=== PATIENT | male | born 1975 | race Caucasian/White ===

== ENCOUNTER 2016-07-17 19:49 | Emergency (ER) | END 2016-07-17 23:55 | disposition home or self-care (01) | CPT/HCPCS: 99283; 99284; A9270 ==

== ENCOUNTER 2020-10-29 12:41 | Emergency (ER) | payer OTHER ==
--- OUTSIDE RECORDS SUMMARY | 2020-10-29 13:28 | EXTERNAL MEDICAL SUMMARY RPT | Continuity of Care Document ---
:1975 Demographics Phone Unavailable Preferred Language Unknown Marital Status Unknown Anglican Affiliation Unknown Race Unknown Ethnic Group Unknown Author Organization [facility] Address [address] [phone] Phone Social History date description facility [phone]
[2020-10-29 13:40] LABS: BASOPHILS % (AUTO) 0.7 %; EOSINOPHILS # (AUTO) 0.1 10^3/uL (0.0-0.7); HCT - HEMATOCRIT 39.1 % (42.0-52.0); HGB - HEMOGLOBIN 14.5 g/dL (14.0-18.0); LYMPHOCYTES # (AUTO) 1.7 10^3/uL (1.5-3.5); LYMPHOCYTES % (AUTO) 28.1 %; MEAN CORPUSCULAR HEMOGLOBIN 32.7 pg (27.0-31.0); MEAN CORPUSCULAR HGB CONC 37.1 g/dL (32.0-36.0); MEAN CORPUSCULAR VOLUME 88.1 fL (80.0-94.0); MONOCYTES # (AUTO) 0.4 10^3/uL (0.0-1.0); MONOCYTES % (AUTO) 6.7 %; NEUTROPHILS # (AUTO) 3.8 10^3/uL (1.5-6.6); NEUTROPHILS % (AUTO) 63.2 %; PLT - PLATELET COUNT 168 10^3/uL (130-450); RED BLOOD COUNT 4.44 10^6/uL (4.70-6.10)
[2020-10-29 13:43] LABS: ALBUMIN 4.8 g/dL (3.2-5.5); ALBUMIN/GLOBULIN RATIO 1.8 (1.0-2.2); CALCIUM 9.7 mg/dL (8.5-10.3); POTASSIUM 3.7 mmol/L (3.5-5.0); TOTAL PROTEIN 7.5 g/dL (6.7-8.2)
--- NOTE | 2020-10-29 14:01 | ED Physician Documentation ---
History of Present Illness - Stated complaint Stated Complaint: DIZZINESS - Chief complaint Chief Complaint: Neuro - Additonal information Additional information: 45-year-old male who is active duty [employer] and carries a history of hypertension and GERD presents to the emergency department for increasing episodes of feeling lightheaded. He denies a sensation of vertigo or room spinning. However he reports that since January 2020 he has had increasing episodes where he feels as though he is going to faint though he never has. He says that he will feel foggy as though he is going to pass out feel heavy and weak. He denies tunnel vision. He denies palpitations chest pain or shortness of air during these events. He has been followed by [facility] for this and has reportedly had unremarkable screening labs as well as EKGs echocardiogram and a nuclear stress test. He is being referred to a feed mixer and has the appointment scheduled for November 19. Today's symptoms lasted longer than they typically do which was nearly 1 hour. Therefore he presents to the ED. SOC: social etoh; no tobacco meds: losartan, omeprazole, allergy medication Review of Systems Constitutional: denies: Fever, Chills Eyes: denies: Loss of vision, Decreased vision, Photophobia Ears: denies: Loss of hearing, Ear pain, Tinnitus/ringing Nose: reports: Rhinorrhea / runny nose, Congestion Throat: reports: Reviewed and negative Cardiac: reports: Other (Sensation of feeling lightheaded as though he is going to pass out. Not vertigo or room spinning.). denies: Chest pain / pressure, Palpitations, Pedal edema, Calf pain Respiratory: denies: Dyspnea, Cough GI: denies: Abdominal Pain, Abdominal Swelling, Nausea, Vomiting, Constipation, Diarrhea : denies: Dysuria, Frequency, Hesitancy Skin: reports: Reviewed and negative Musculoskeletal: denies: Neck pain, Back pain, Extremity pain Neurologic: reports: Generalized weakness, Near syncope. denies: Numbness, Difficulty speaking, Syncope, Seizure, Confused, Altered mental status, Unresponsive, Headache, Head injury, LOC PD PAST MEDICAL HISTORY - Past Medical History Cardiovascular: Hypertension Respiratory: None Endocrine/Autoimmune: None GI: None : None HEENT: None Psych: None Musculoskeletal: None Derm: None - Past Surgical History Past Surgical History: No - Present Medications Home Medications: Ambulatory Orders Medication Instructions Recorded Confirmed Multivitamin [Multiple Vitamins] 1 mg PO DAILY 07/17/16 10/29/20 [place]-3/Dha/Epa/Fish Oil [Fish Oil 1 mg PO DAILY 07/17/16 10/29/20 1,000 mg Softgel] Losartan [Cozaar] 50 mg PO DAILY 10/29/20 10/29/20 Omeprazole Magnesium 20 mg PO BID 10/29/20 10/29/20 - Allergies Allergies/Adverse Reactions: Allergies Allergy/AdvReac Type Severity Reaction Status Date / Time No Known Drug Allergies Allergy Verified 10/29/20 12:47 - Social History Does the pt smoke?: No Smoking Status: Never smoker Does the pt drink ETOH?: Yes Does the pt have substance abuse?: No - Immunizations Immunizations are current?: Yes - POLST Patient has POLST: No PD ED PE EXPANDED - General General: Alert, No acute distress, Well developed/nourished - HEENT HEENT: Atraumatic, PERRL - Eyes Eyes: Visual acuity - see nn, PERRL - Neck Neck: Supple w/out meningeal sx, No tenderness. No: Adenopathy, Thyroid enlarged / mass - Cardiac Cardiac: Regular Rate, Radial strong equal, Pedal strong equal, Cap refill < 2 sec. No: Murmur Present - Respiratory Respiratory: Clear to ausultation rodney. No: Distress, Labored - Abdomen Abdomen: Normal Bowel sounds. No: Tender to palpation - Extremities Extremities: Normal, Pedal Pulses Present. No: Deformity, Tenderness, Pedal edema bilateral, Right calf TTP/cord, Left calf TTP/cord - Neuro Neuro: Alert and Oriented X 3, CNII-XII intact. No: Confused, Disoriented - GCS Eye Opening: Spontaneous Motor: Obeys Commands Verbal: Oriented Total: 15 Results - Vitals Vitals: Vital Signs - 24 hr 10/29/20 10/29/20 10/29/20 12:48 13:54 14:33 Temperature 36.3 C L 36.6 C Heart Rate 78 75 Heart Rate [ 73 Sitting] Heart Rate [ 77 Standing] Heart Rate [ 71 Supine] Respiratory 18 18 Rate Blood Pressure 166/106 H 138/90 H Blood Pressure 160/100 H [Sitting] Blood Pressure 151/106 H [Standing] Blood Pressure 140/99 H [Supine] O2 Saturation 100 96 Oxygen O2 Source Room air - EKG (time done) 1253 Rate: Rate (enter#) (70) Rhythm: NSR [place]: Normal Intervals: Normal [place]. No: Prolonged QT QRS: Normal Ischemia: Non specific changes Compare to prior EKG: Old EKG unavailable Computer interpretation: Agree with computer (t flattening inferior) - Labs Labs: Laboratory Tests 10/29/20 10/29/20 10/29/20 12:58 13:15 13:15 WBC 6.0 RBC 4.44 L Hgb 14.5 Hct 39.1 L MCV 88.1 MCH 32.7 H MCHC 37.1 H RDW 12.0 Plt Count 168 MPV 10.0 Neut # (Auto) 3.8 Lymph # (Auto) 1.7 [place] # (Auto) 0.4 Eos # (Auto) 0.1 Baso # (Auto) 0.0 Absolute Nucleated RBC 0.00 Nucleated RBC % 0.0 D-Dimer Sodium 136 Potassium 3.7 Chloride 103 Carbon Dioxide 24 Anion Gap 9.0 BUN 19 Creatinine 1.0 Estimated GFR (MDRD) 81 L Glucose 101 H POC Whole Bld Glucose 108 H Calcium 9.7 Total Bilirubin 1.0 AST 27 ALT 55 Alkaline Phosphatase 54 Troponin I High Sens Total Protein 7.5 Albumin 4.8 Globulin 2.7 Albumin/Globulin Ratio 1.8 Lipase 47 10/29/20 10/29/20 13:15 13:15 WBC RBC Hgb Hct MCV MCH MCHC RDW Plt Count MPV Neut # (Auto) Lymph # (Auto) [place] # (Auto) Eos # (Auto) Baso # (Auto) Absolute Nucleated RBC Nucleated RBC % D-Dimer < 200.0 L Sodium Potassium Chloride Carbon Dioxide Anion Gap BUN Creatinine Estimated GFR (MDRD) Glucose POC Whole Bld Glucose Calcium Total Bilirubin AST ALT Alkaline Phosphatase Troponin I High Sens 5.9 Total Protein Albumin Globulin Albumin/Globulin Ratio Lipase - Rads (name of study) CXR Radiology: Final report received (No acute cardiopulmonary process.) PD MEDICAL DECISION MAKING - ED course Complexity details: reviewed results, re-evaluated patient, d/w patient ED course: Well-appearing 45-year-old male presents emergency department for evaluation of increasing episodes of near syncope over the last year. He is reportedly had a negative echocardiogram as well as nuclear med stress test. He is currently scheduled to be evaluated by feed mixer on 19 November. Today screening EKG is without worrisome findings and all his labs are essentially unremarkable. Chest x-ray also unremarkable. I did do a D-dimer that was negative. Therefore I doubt that prolonged pulmonary embolus is the cause of recurrent near syncope. His orthostatic vital signs were unremarkable and he has a normal gait here in the emergency department. No clear etiology is found for this gentleman symptoms but he is stable for discharge home. Continue to follow-up with [facility] as already scheduled. Departure - Departure Disposition: 01 Home, Self Care Clinical Impression: Near syncope Condition: Stable Record reviewed to determine appropriate education?: Yes Comments: Abhijit we were unable to determine a cause for your near fainting episodes over the last year. Your screening labs, chest x-ray and EKG are all unremarkable. It is important you continue to follow-up with a feed mixer as already scheduled. Return immediately to the emergency department if you develop chest pain, have fainting episodes or develop shortness of air.
--- NOTE | 2020-10-29 15:00 | XRAY Report ---
PROCEDURE: Chest 1 View X-Ray INDICATIONS: chest pain TECHNIQUE: One view of the chest was acquired. COMPARISON: None FINDINGS: Surgical changes and devices: None. Lungs and pleura: No pleural effusions or pneumothorax. Lungs are clear. Mediastinum: Mediastinal contours appear normal. Heart size is normal. Bones and chest wall: No suspicious bony lesions. Overlying soft tissues appear unremarkable. IMPRESSION: No acute cardiopulmonary disease process. Reviewed by: Maria Fernanda Faustin MD, PhD on 10/29/2020 2:59 PM PDT Approved by: Maria Fernanda Faustin MD, PhD on 10/29/2020 2:59 PM PDT Station ID: [id number]
[2020-10-29 15:38] VITALS: BP 141/90
== END 2020-10-29 15:40 | disposition home or self-care (01) ==
LOC: ED 12:41
DX: R55 Syncope and collapse (principal); R53.1 Weakness; I10 Essential (primary) hypertension; K21.9 Gastro-esophageal reflux disease without esophagitis
CPT/HCPCS: 36415; 80053; 83690; 84484; 85025; 85379; 93005; 99284